=== PATIENT | female | born 1990 | race Two or more races ===

== ENCOUNTER 2017-05-08 15:33 | Emergency (ER) | payer SELFPAY ==
[2017-05-08 15:43] VITALS: BP 115/72; BMI 28.3
--- NOTE | 2017-05-08 16:08 | DR.GENAD ---
HPI - PCP Primary Care Physician: [id number] - HPI Comment HPI Comment: WORSE TODAY. - Complaint/Symptoms Chief Complaint Doctors Comments: COUGH, CONGESTION, BODY ACHES, FEVER TIMES 2 DAYS. Chief Complaint:: FLU LIKE SYMPTOMS. C/O SORE THROAT AND HEADACHE - Nurses notes reviewed Nurses Notes Review: Yes - Source History Provided: Family Member - Mode of Arrival Mode of Arrival: Wheelchair - Timing Onset of Chief Complaint: 05/08/17 Came on: Suddenly - Duration Duration: Constant Duration: Days - Severity Severity: Moderate PMH - PMH Past Medical History: No Past Surgical History: No - Family History History of Family Medical Conditions: No - Social History Does patient currently use any type of tobacco product: No Have you used tobacco products in the last 12 months: No Type of Tobacco Use: None Does any household member use tobacco: No Alcohol Use: None Do you use any recreational Drugs:: No Lives With: Spouse Lives Where: Home - infectious screening In the last 2 months have you had wt loss of >10#?: NO Have you had fever, night sweats or hemotysis?: No Have you traveled outside the country in the last 6 months?: No Isolation: Standard ROS - Review of Systems Constitutional: Fever, Weakness, Fatigue. negative: Chills Eyes: No Symptoms Reported ENTM: No Symptoms Reported, Ear Pain, Nose Discharge, Nose Congestion, Throat Pain Respiratoy: No Symptoms Reported, Non-Productive Cough. negative: Short of Breath, Wheezing, Hemoptysis Cardiovascular: No Symptoms Reported Gastrointestinal/Abdominal: No Symptoms Reported Genitourinary: No Symptoms Reported Neurological: Headache Musculoskeletal: Muscle Pain Integumentary: No Symptoms Reported Hematologic/Lymphatic: No Symptoms Reported Endocrine: No Symptoms Reported All Other Systems: Reviewed and Negative PE - Vital Signs Vitals: Temperature 99.1 F Pulse Rate 102 Respiratory Rate 18 Blood Pressure 115/72 O2 Sat by Pulse Oximetry 98 - General Limitations: No Limitations General Appearance: Alert - Head Head Exam: Normal Inspection - Eyes Eye exam: Normal Appearance - ENT ENT Exam: Normal External Ear Exam External Ear Exam: Normal External Inspection TM/Canal Exam: Bilateral Bulging Nose Exam: Normal Nose Exam Mouth Exam: Normal Inspection Throat Exam: Tonsillar Erythema, Tonsillomegaly. negative: Tonsillar Exudate - Neck Neck Exam: Trachea Midline - Chest Chest Inspection: Symmetric Chest Wall Rise - Respiratory Respiratory Exam: Normal Lung Sounds Bilat Respiratory Exam: Bilateral Clear to Auscultation - Cardiovascular Cardiovascular Exam: Regular Rate, Normal Rhythm, Normal Heart Sounds - Abdominal Exam Abdominal Exam: Normal Inspection - Extremities Extremities Exam: Normal Inspection - Back Back Exam: Normal Inspection - Neurologic Neurological Exam: Alert, Oriented X3 - Psychiatric Psychiatric Exam: Normal Affect, Normal Mood - Skin Skin Exam: Normal Color MDM - Additional Information Additional Information Obtained From: Family - Differential Diagnosis Differential Diagnosis: INFLUENZA, PHARYNGITIS, SINUSITIS, BRONCHITIS Course - Treatment Treatment: SEE ORDERS. - Education/Counseling Education/Counseling: Patient, Education Educated On: Diagnosis, Needs for Follow Up ROR - Labs Reviewed Laboratory Results Reviewed?: Yes Laboratory: Influenza Type A (PCR) Positive (NEGATIVE) A 05/08/17 16:33 Influenza Type B (PCR) Negative (NEGATIVE) 05/08/17 16:33 S. pyogenes (TEM-PCR) Not detected (NOT DETECT) 05/08/17 16:33 - Diagnosis Discharge Problem: Influenza Sinusitis Qualifiers: Sinusitis location: unspecified location Chronicity: acute Recurrence: not specified as recurrent Qualified Code(s): J01.90 - Acute sinusitis, unspecified Pharyngitis Qualifiers: Pharyngitis/tonsillitis etiology: other specified organisms Qualified Code(s): J02.8 - Acute pharyngitis due to other specified organisms - Discharge Plan Condition: Stable Prescriptions: Amoxicillin [Amoxil 875 mg] 875 mg PO Q12H #20 tab Ibuprofen [MOTRIN TAB 600 MG *] 600 mg PO TID PRN #20 tab PRN Reason: Pain/Inflammation Oseltamivir Phosphate [Tamiflu] 75 mg PO BID #10 cap - Follow ups/Referrals Follow ups/Referrals: NFD,None [Primary Care Provider] - 3 days - Instructions Instructions: Influenza, Adult, [id number], Tonsillitis, [id number] Additional Instructions: RETURN TO ED IF WORSE.
== END 2017-05-08 18:30 | disposition home or self-care (01) ==
LOC: ER 15:47
DX: J11.1 Influenza due to unidentified influenza virus with other respiratory manifestations (principal); J01.80 Other acute sinusitis; J02.8 Acute pharyngitis due to other specified organisms
CPT/HCPCS: 87502; 87651; 99282; 99283